=== PATIENT | female | born 1995 | race Caucasian/White ===

== ENCOUNTER 2016-12-04 12:04 | Emergency (ER) | payer OTHER ==
--- NOTE | 2016-12-04 12:16 | ED Physician Chart ---
Chief Complaint/HPI - Patient Information Date Seen:: 12/04/16 Time Seen:: 12:15 Chief Complaint:: Mild vaginal discharge for 3 days. History of Present Illness:: female with LNMP 10/10/16. Pt has noticed mild brownish vaginal discharge, started 3 days ago, usually on awakening that has been improving. No fever. Pt had transient pelvic cramp earlier that has resolved. Pt has confirmed about 2 weeks ago by her PCP Dr. Brown. Taking po well without N/V/ D. Pt has pending appt with her [facility] physician Dr. Echevarria 12/09/16. Allergies:: NKA Vitals:: see Nurse Note. Historian:: Patient Family MD/PCP:: Dr. Brown. LMP:: 10/10/17 Review:: Nurse's Note Reviewed Review of Systems - Review of Systems General/Constitutional: No fever, No chills, No weight loss, No weakness, No diaphoresis, No edema, No loss of appetite Skin: No skin lesions, No rash, No bruising Head: No headache, No light-headedness Eyes: No loss of vision, No pain, No diplopia ENT: No earache, No nasal drainage, No sore throat, No tinnitus Neck: No neck pain, No swelling, No thyromegaly, No stiffness, No mass noted Cardio Vascular: No chest pain, No palpitations, No PND, No orthopnea, No edema Pulmonary: No SOB, No cough, No sputum, No wheezing GI: No nausea, No vomiting, No diarrhea, No pain, No melena, No hematochezia, No constipation, No hematemesis G/U: No dysuria, No frequency, No hematuria [employer]: Vaginal discharge (see HPI.), No abnormal vaginal bleed, No contraction Musculoskeletal: No bone or joint pain, No back pain, No muscle pain Endocrine: No polyuria, No polydipsia Psychiatric: No prior psych history Hematopoietic: No bruising, No lymphadenopathy Allergic/Immuno: No urticaria, No angioedema Neurological: No syncope, No focal symptoms, No weakness, No paresthesia, No headache, No seizure, No dizziness, No confusion, No vertigo Past Medical History - Past Medical History Past Medical History: No significant medical hx Family History: None Social History: Non Smoker, No Alcohol, No Drug Use, Single, Employed, Other ( lives with her significant other.) Surgical History: None Psychiatricy History: None Medication: Reviewed Family Medical History - Family Member Mother History Unknown: Yes Physical Exam - Physical Examination General/Constitutional: Awake, Well-developed, well-nourished, Alert, No distress, GCS 15, Non-toxic appearing, Ambulatory Other Gen/Cons comments:: Breathes comfortably, speaks clearly, and ambulates without difficulty. Head: Atraumatic Eyes: Lids, conjuctiva normal, PERRL, EOMI Skin: Nl inspection, No rash, No skin lesions, No ecchymosis, Well hydrated, No lymphadenopathy ENMT: External ears, nose nl, Nasal exam nl, Lips, teeth, gums nl, Oropharynx nl , Tonsils nl Neck: Nontender, Full ROM w/o pain, No nuchal rigidity, No mass, No stridor Respiratory: Nl effort/Exclusion, Clear to Auscultation, No Wheeze/Rhonchi/Rales Cardio Vascular: RRR, No murmur, gallop, rubs, NL S1 S2 GI: No tenderness/rebounding/guarding, No organomegaly, No hernia, Normal BS's, Nondistended, No mass/bruits, No McBurney tenderness Other GI comments:: Abdomen is soft. : No CVA tenderness Other comments:: Pt declines pelvic exam as her vaginal discharge has resolved. She now feels well without any pelvic discomfort. Pt prefers to be followed at [facility] with Dr. Echevarria tomorrow for pelvic exam and further evaluation. Extremities: No tenderness or effusion, Full ROM, normal strength in all extremities, No edema, Normal digits & nails Neuro/Psych: Alert/oriented (oriented x 3), Judgement/insight normal, Mood normal, Normal gait, No focal deficits Labs/Radiology/EKG Results - Lab Results Results: Laboratory Tests 12/04/16 12/04/16 12/04/16 12:45 12:57 13:00 WBC 12.4 H RBC 4.78 Hgb 14.3 Hct 42.2 MCV 88.3 MCH 30.0 MCHC Differential 33.9 RDW 11.9 Plt Count 290 MPV 7.5 Neutrophils % 74.6 Lymphocytes % 18.4 L Monocytes % 6.0 Eosinophils % 0.9 Basophils % 0.1 PT 9.7 INR 0.98 PTT (Actin FS) 26.7 Sodium Potassium Chloride Carbon Dioxide Anion Gap BUN Creatinine Est GFR ( Amer) Est GFR (Non-Af Amer) BUN/Creatinine Ratio Glucose Calcium Beta HCG, Quant Urine Source CLEAN C Urine Color YELLOW Urine Clarity HAZY Urine pH 7.5 Ur Specific Reserve 1.020 Urine Protein NEGATIVE Urine Glucose (UA) NEGATIVE Urine Ketones NEGATIVE Urine Blood TRACE Urine Nitrate NEGATIVE Urine Bilirubin NEGATIVE Urine Urobilinogen 0.2 Ur Leukocyte Esterase TRACE H Urine RBC 0-2 Urine WBC 2-5 Ur Epithelial Cells MANY Urine Bacteria FEW 12/04/16 13:00 WBC RBC Hgb Hct MCV MCH MCHC Differential RDW Plt Count MPV Neutrophils % Lymphocytes % Monocytes % Eosinophils % Basophils % PT INR PTT (Actin FS) Sodium 132 L Potassium 3.6 Chloride 102 Carbon Dioxide 22.9 Anion Gap 10.7 BUN 11 Creatinine 0.5 L Est GFR ( Amer) > 60.0 Est GFR (Non-Af Amer) > 60.0 BUN/Creatinine Ratio 22.0 Glucose 105 Calcium 9.4 Beta HCG, Quant 7105 Urine Source Urine Color Urine Clarity Urine pH Ur Specific Reserve Urine Protein Urine Glucose (UA) Urine Ketones Urine Blood Urine Nitrate Urine Bilirubin Urine Urobilinogen Ur Leukocyte Esterase Urine RBC Urine WBC Ur Epithelial Cells Urine Bacteria - Radiology Results Results: Pelvic sonogram (Preliminary report): Small anachoic area within the endometrium. Unable to prove viability. Unremarkable otherwise. ED Septic Shock - . Is Septic Shock (SBP<90, OR Lactate>4 mmol\L) present?: No Reassessment (Disposition) - Reassessment Reassessment:: 1420 Pt remains stable and comfortable. Awaiting pelvic sonographic report. 1510 Pt is comfortable. Pt denies having any vaginal discharge or pelvic discomfort at the present. Pelvic sonographic report just became available. Lab and sonographic findings have been reviewed with pt. Pt requests to go home now and does not want further observation/management in hospital. Aftercare instructions given. Reassessment Condition:: Improved - Diagnosis Diagnosis:: Early intrauterine . Mild vaginal discharge by hx, stable and resolved by hx. Mild asymptomatic bacteruria. Stable. - Aftercare/Follow up Instructions Aftercare/Follow-Up Instructions:: Refer to Discharge Instructions Notes:: Continue present care. No sexual intercourse until further physician direction. F/U with Dr. Echevarria at [facility] in one day for recheck. Return to ER immediately if condition worsens or if any further questions/problems. Medication Prescribed:: Keflex 500 mg tab one tab po q12h D-14 R-0 - Patient Disposition Discharge/Transfer:: Home Time:: 15:20 Condition at Disposition:: Stable, Improved
[2016-12-04 13:12] LABS: % BASOPHILS 0.1 % (0.0-2.0); % EOSINOPHILS 0.9 % (0.0-5.0); % LYMPHOCYTES 18.4 % (20.0-50.0); % NEUTROPHILS 74.6 % (40.0-80.0); HEMATOCRIT 42.2 % (35.0-45.0); HEMOGLOBIN 14.3 gm/dL (11.7-15.5); MEAN CELL VOLUME 88.3 fl (81-100); MEAN CORPUSCULAR HGB CONC 33.9 pg (28.0-36.0); MEAN PLATELET VOLUME 7.5 fl; NEUTROPHILE ABSOLUTE 9.3 Th/cmm (1.8-8.0); PLATELET COUNT 290 Th/cmm (150-400); RED BLOOD COUNT 4.78 Mil/cmm (3.80-5.10); RED CELL DISTRIBUTION WIDTH 11.9 % (11.5-20.0); WHITE BLOOD COUNT 12.4 Th/cmm (4.8-10.8)
[2016-12-04 13:17] LABS: URINE BILIRUBIN NEGATIVE (NEGATIVE); URINE BLOOD TRACE (NEGATIVE); URINE COLOR YELLOW; URINE GLUCOSE (UA) NEGATIVE (NEGATIVE); URINE KETONE NEGATIVE (NEGATIVE); URINE PH 7.5; URINE PROTEIN NEGATIVE (NEGATIVE); URINE UROBILINOGEN 0.2 E.U./dL (0.2 - 1.0)
[2016-12-04 13:32] LABS: ANION GAP 10.7 (7.0-16.0); BUN - UREA NITROGEN 11 mg/dL (7-25); CALCIUM SERUM 9.4 mg/dL (8.6-10.3); CARBON DIOXIDE 22.9 mEq/L (21.0-31.0); CHLORIDE 102 mEq/L (98-107); CREATININE - SERUM 0.5 mg/dL (0.6-1.2); GLUCOSE 105 mg/dL (70-105); POTASSIUM SERUM 3.6 mEq/L (3.5-5.1); SODIUM SERUM 132 mEq/L (136-145)
[2016-12-04 13:35] LABS: INR 0.98 (0.5-1.4); PROTHROMBIN TIME (TEST) 9.7 SECONDS (9.5-11.5)
[2016-12-04 13:42] LABS: URINE BACTERIA FEW /hpf (NONE SEEN); URINE EPITHELIAL CELLS MANY /lpf (FEW); URINE RBC 0-2 /hpf (0-5)
[2016-12-04 13:58] LABS: HCG QUANT 7105 mIU/mL
--- NOTE | 2016-12-05 14:54 | Diagnostic Imaging Report ---
OB ultrasound HISTORY: Pain, positive test There is a bulbous shaped uterus (10.1 x 4.7 x 6.5 cm). There is an approximate 1.1 x 0.5 x 1.2 cm sonolucent focus consistent with an early gestational sac within a thickened endometrium (13.3 mm). No cardiac activity is seen. Sonographic appearance is consistent with an age of approximately 4-5 weeks. Viability cannot be confirmed. The ovaries and adnexal regions are unremarkable. IMPRESSION: 1. Findings suggesting a small intrauterine gestational sac with an approximate age of 4 weeks. As no pole is seen, viability cannot be confirmed. Correlation with hCG values and a follow-up ultrasound exam in one week would provide additional assessment.
== END 2016-12-04 15:15 | disposition home or self-care (01) ==
LOC: ER 12:04
DX: O23.91 Unspecified genitourinary tract infection in pregnancy, first trimester (principal); Z3A.01 Less than 8 weeks gestation of pregnancy
CPT/HCPCS: 36415-UA; 76811-TC; 80048-TC; 81001-TC; 84702-TC; 85025-TC; 85610-TC; 86900-TC; 86901-TC